=== PATIENT | female | born 1970 | race Caucasian/White ===

== ENCOUNTER 2019-01-31 12:24 | Emergency (ER) | payer OTHER ==
[~2019-01-31] VITALS: Ht 165.1 cm; Wt 55.8 kg
[2019-01-31] MEDS ORDERED: ATOR1TAB19 PO (12:41)
[2019-01-31] MEDS ORDERED: ASPI81TA85 PO (12:41)
--- NOTE | 2019-01-31 14:10 | REP ---
CHEST, TWO VIEWS: There is no evidence of acute infiltrate. No pleural effusion is seen. The heart is normal in size. The mediastinal silhouette is unremarkable. The visualized osseous structures are intact. IMPRESSION: No acute pulmonary disease. Unreviewed
[2019-01-31 14:20] VITALS: BP 128/72
== END 2019-01-31 14:24 | disposition home or self-care (01) ==
LOC: M ED 12:24
DX: J20.9 Acute bronchitis, unspecified (principal); E78.5 Hyperlipidemia, unspecified; Z85.41 Personal history of malignant neoplasm of cervix uteri; I73.00 Raynaud's syndrome without gangrene; F17.200 Nicotine dependence, unspecified, uncomplicated; Z79.82 Long term (current) use of aspirin; Z79.899 Other long term (current) drug therapy; Z88.0 Allergy status to penicillin; Z91.030 Bee allergy status